=== PATIENT | female | born 2000 | race Caucasian/White ===

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

== ENCOUNTER 2021-08-03 15:04 | Emergency (ER) | payer MEDICAID ==
[~2021-08-03] VITALS: Ht 162.6 cm; Wt 97.7 kg
[~2021-08-03 15:04] MED LIST changes: +DESYREL 50MG50 MG PO; +VRAYLAR4.5 MG PO; +VYVANSE20 MG PO
[2021-08-03 15:17] VITALS: TEMP 98.2
[2021-08-03 15:55] LABS: COLLECTION METHOD CLEAN CATCH
[2021-08-03 16:07] LABS: BASO % 0.3 % (0.0-2.0); EOS # 0.2 K/mm3 (0.0-0.7); EOS % 1.2 % (0.0-4.0); GRAN # 9.4 K/mm3 (1.4-6.5); GRAN % 76.6 % (42.2-75.2); HEMATOCRIT 40.5 % (37.0-47.0); HEMOGLOBIN 13.9 g/dl (12.5-16.0); LYMPH # 1.9 K/mm3 (1.2-3.4); LYMPH % 15.4 % (20.0-51.0); MEAN CELL VOLUME 88 fl (80.0-100.0); MEAN CORPUSCULAR HEMOGLOBIN 30 pg (27-31); MEAN CORPUSCULAR HGB CONC 34 g/dl (33.0-37.0); MONO # 0.8 K/mm3 (0.1-0.6); MONO % 6.2 % (1.7-9.3); PLATELET COUNT 419 K/mm3 (130-400); RED BLOOD COUNT 4.59 M/mm3 (4.10-5.30); REDCELL DISTRIBUTION WIDTH-CV 13.1 % (11.5-14.5)
[2021-08-03 16:18] LABS: ALBUMIN 3.8 gm/dL (3.5-5.0); BILIRUBIN,TOTAL 0.3 mg/dL (0.2-1.2); CALCIUM 9.2 mg/dL (8.4-10.2); CREATININE, serum 0.72 mg/dL (0.57-1.11); TOTAL PROTEIN 7.5 gm/dL (6.2-8.1)
[2021-08-03 16:19] LABS: MUCOUS Present (NOT PRESENT); PH 7 (5-8); URINE APPEARANCE Hazy (CLEAR/HAZY); URINE BACTERIA Rare /hpf (NONE SEEN); URINE BILIRUBIN Negative (NEGATIVE); URINE BLOOD Negative (NEGATIVE); URINE COLOR Yellow (YELLOW); URINE GLUCOSE Negative (NEGATIVE); URINE KETONE Negative (NEGATIVE); URINE LEUKOCYTE ESTERASE 2+ (NEGATIVE); URINE NITRATE Negative (NEGATIVE); URINE PROTEIN(semi-quant) Negative (NEGATIVE); URINE RBC 0-2 /hpf (0-2); URINE UROBILINOGEN Negative (NEGATIVE)
[2021-08-03 19:27] VITALS: BP 117/71; PULSE 66
--- NOTE | 2021-08-04 10:11 | NUR ---
The patient presented to our ED yesterday and was discharged home. A social service consult was ordered. SW attempted to contact the patient at the phone number listed in EMR for her. SW left her a voicemail.
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
== END 2021-08-03 19:29 | disposition home or self-care (01) ==
LOC: COL.ER 15:04
PROVIDERS: Physician Assistant
DX: F25.0 Schizoaffective disorder, bipolar type (principal); R45.851 Suicidal ideations; Z32.01 Encounter for pregnancy test, result positive; Z28.310 Unvaccinated for COVID-19
CPT/HCPCS: J2060

== ENCOUNTER 2023-05-07 23:40 | Emergency (ER) | payer MEDICAID ==
[~2023-05-07] VITALS: Ht 162.6 cm; Wt 76.8 kg
[2023-05-07 23:52] VITALS: TEMP 98.7
[2023-05-08] MEDS ORDERED: Acetaminophen 500 MG TAB PO ONE (00:45)
[2023-05-08] MEDS ORDERED: Ibuprofen 400 MG TAB PO ONE (00:45)
[2023-05-08 02:08] VITALS: BP 119/73; PULSE 71
== END 2023-05-08 02:08 | disposition home or self-care (01) ==
LOC: COL.ER 23:40
DX: R53.81 Other malaise (principal); R42 Dizziness and giddiness; R06.02 Shortness of breath; R05.9 Cough, unspecified; R51.9 Headache, unspecified